=== PATIENT | female | born 1975 | race Hispanic/Latino ===

== ENCOUNTER 2017-08-24 03:29 | Emergency (ER) | payer BC ==
[~2017-08-24] VITALS: Ht 162.6 cm; Wt 54.4 kg
[~2017-08-24 03:29] MED LIST: CIPRO500 MG PO; HYDROCODON-ACE1 EAC9 PO
== END 2017-08-24 04:10 | disposition left against medical advice (07) ==
LOC: ER 03:29
DX: F15.90 Other stimulant use, unspecified, uncomplicated (principal); F17.210 Nicotine dependence, cigarettes, uncomplicated